=== PATIENT | male | born 1980 | race Caucasian/White ===

== ENCOUNTER 2018-11-17 13:19 | Emergency (ER) | payer SELFPAY ==
[2018-11-17] MEDS ORDERED: ONDANSETRON HCL INJ/PF 4 MG/2 ML SDV IV ONE (14:58)
[2018-11-17] MEDS ORDERED: MORPHINE SULFATE 10 MG/ML INJ IV ONE (14:58)
--- NOTE | 2018-11-17 15:04 | ER Document Report ---
ED GI/ - General Chief Complaint: Groin Pain Stated Complaint: GROIND PAIN Time Seen by Provider: 11/17/18 14:46 Mode of Arrival: Ambulatory Information source: Patient Notes: Patient is a 38-year-old male comes emergency room complaining of left inguinal pain. Patient states that he felt a pop up 2 weeks ago was very small in the low back in and had no problem with it on Saturday this past week patient states that it doubled in size and is not been reducible. He contacted his doctor told him he needed to come to emergency room. Pain has been consistent and constant for the last 2 days. He has been covering his pain with ibuprofen and Tylenol and states that the pain is getting worse and the Tylenol he took last is wearing off. Patient denies any other medical problems he denies any testicular pain or any type of discharge or dysuria. TRAVEL OUTSIDE OF THE [place] IN LAST 30 DAYS: No - HPI Patient complains to provider of: Groin pain Onset: Last week Timing/Duration: Gradual, Worse Quality of pain: Achy, Sharp, Throbbing Severity at maximum: Moderate Severity in ED: Moderate Pain Level: 3 Location: LLQ Sexual history: Active Associated symptoms: Inguinal mass Relieved by: Denies Similar symptoms previously: Yes Recently seen / treated by doctor: No - Related Data Allergies/Adverse Reactions: Penicillins Allergy (Verified 11/17/18 13:20) Past Medical History - General Information source: Patient - Social History Smoking Status: Never Smoker Cigarette use (# per day): No Chew tobacco use (# tins/day): No Smoking Education Provided: No Frequency of alcohol use: None Drug Abuse: None Lives with: Family Family History: Reviewed & Not Pertinent Review of Systems - Review of Systems Constitutional: No symptoms reported EENT: No symptoms reported Cardiovascular: No symptoms reported Respiratory: No symptoms reported Gastrointestinal: See HPI, Abdominal pain, Other - Left inguinal pain Genitourinary: No symptoms reported Male Genitourinary: No symptoms reported Musculoskeletal: No symptoms reported Skin: No symptoms reported Hematologic/Lymphatic: No symptoms reported Neurological/Psychological: No symptoms reported -: Yes All other systems reviewed and negative Physical Exam - Vital signs Vitals: Temp Pulse Resp BP Pulse Ox 97.9 F 81 16 150/75 H 95 11/17/18 13:24 11/17/18 13:24 11/17/18 13:24 11/17/18 13:24 11/17/18 13:24 Interpretation: Hypertensive Notes: PHYSICAL EXAMINATION: GENERAL: Well-appearing, well-nourished and in no acute distress. Uncomfortable appearing HEAD: Atraumatic, normocephalic. NECK: Normal range of motion, supple without lymphadenopathy LUNGS: Breath sounds clear to auscultation bilaterally and equal. No wheezes rales or rhonchi. HEART: Regular rate and rhythm without murmurs ABDOMEN: Soft, nontender, nondistended abdomen. No guarding, no rebound. No masses appreciated. Further examination shows a firm mass in the left inguinal area. Very tender to palpate. Unable to differentiate this time between the lymph node inflamed or a left inguinal hernia. #3 NEUROLOGICAL:Normal speech, normal gait. Normal sensory, motor exams PSYCH: Normal mood, normal affect. SKIN: Warm, Dry, normal turgor, no rashes or lesions noted. Course - Vital Signs Vital signs: Temp Pulse Resp BP Pulse Ox 97.9 F 81 16 150/75 H 95 11/17/18 13:24 11/17/18 13:24 11/17/18 13:24 11/17/18 13:24 11/17/18 13:24 Discharge - Discharge Referrals: LOCALMD,NO [Primary Care Provider] - Follow up as needed
[2018-11-17 15:57] LABS: ABSOLUTE EOSINOPHILS # (AUTO) 0.2 10^3/uL (0.0-0.6); ABSOLUTE LYMPHOCYTES (AUTO) 1.9 10^3/uL (0.5-4.7); ABSOLUTE MONOCYTES (AUTO) 1.2 10^3/uL (0.1-1.4); BASOPHILS % (AUTO) 0.5 % (0-2); EOSINOPHILS % (AUTO) 2.6 % (0-6); HEMATOCRIT 51.3 % (37.9-51.0); HEMOGLOBIN 17.8 g/dL (13.5-17.0); LYMPHOCYTES % (AUTO) 20.3 % (13-45); MEAN CORPUSCULAR HEMOGLOBIN 30.1 pg (27.0-33.4); MEAN CORPUSCULAR HGB CONC 34.7 g/dL (32.0-36.0); MEAN CORPUSCULAR VOLUME 87 fl (80-97); MONOCYTES % (AUTO) 12.9 % (3-13); PLATELET COUNT 166 10^3/uL (150-450); RED BLOOD COUNT 5.91 10^6/uL (4.35-5.55); RED CELL DISTRIBUTION WIDTH 13.1 % (11.5-14.0); SEGMENTED NEUTROPHILS % (AUTO) 63.7 % (42-78); TOTAL CELLS COUNTED % (AUTO) 100 %; WHITE BLOOD COUNT 9.5 10^3/uL (4.0-10.5)
[2018-11-17 15:59] LABS: APPEARANCE,URINE CLEAR; BILIRUBIN,URINE NEGATIVE (NEGATIVE); COLOR,URINE YELLOW; GLUCOSE, URINE NEGATIVE (NEGATIVE); KETONES,URINE NEGATIVE (NEGATIVE); LEUKOCYTE ESTERASE,URINE NEGATIVE (NEGATIVE); NITRITE,URINE NEGATIVE (NEGATIVE); PROTEIN,URINE NEGATIVE (NEGATIVE); URINE SPECIFIC GRAVITY 1.015; UROBILINOGEN,URINE NEGATIVE mg/dL (<2.0)
[2018-11-17 19:15] LABS: ALANINE AMINOTRANSFERASE 72 U/L (21-72); ALBUMIN 4.5 g/dL (3.5-5.0); ALKALINE PHOSPHATASE 54 U/L (38-126); ANION GAP 11 (5-19); ASPARTATE AMINO TRANSFERASE 28 U/L (17-59); BILIRUBIN,DIRECT 0.3 mg/dL (0.0-0.4); BILIRUBIN,TOTAL 0.6 mg/dL (0.2-1.3); BLOOD UREA NITROGEN 25 mg/dL (7-20); CALCIUM 9.1 mg/dL (8.4-10.2); CARBON DIOXIDE 25 mmol/L (22-30); CHLORIDE 104 mmol/L (98-107); GLUCOSE 119 mg/dL (75-110); POTASSIUM 4.3 mmol/L (3.6-5.0); SODIUM 139.7 mmol/L (137-145); TOTAL PROTEIN 7.1 g/dL (6.3-8.2)
[2018-11-17 19:18] VITALS: BP 132/53
--- NOTE | 2018-11-17 20:02 | RADIOLOGY REPORT (SQ) ---
EXAM DESCRIPTION: CT ABD/PELVIS WITH IV ONLY COMPLETED DATE/TIME: 11/17/2018 7:41 pm REASON FOR STUDY: left inguinal hernia? vs lymp COMPARISON: None. TECHNIQUE: CT scan of the abdomen and pelvis performed using helical scanning technique with dynamic intravenous contrast injection. No oral contrast. Images reviewed with lung, soft tissue, and bone windows. Reconstructed coronal and sagittal MPR images reviewed. Delayed images for evaluation of the urinary system also acquired. All images stored on PACS. All CT scanners at this facility use dose modulation, iterative reconstruction, and/or weight based d osing when appropriate to reduce radiation dose to as low as reasonably achievable (ALARA). [facility]: Dose Right [facility]: CareDose [facility]: Dose Right [facility]: Teradose 4D [facility]: [place] CONTRAST TYPE AND DOSE: contrast/concentration: Isovue mg/ml; Total Contrast Delivered: 100.0 ml; T otal Saline Delivered: 72.0 ml RENAL FUNCTION: None required. The patient is less than 50 years old. RADIATION DOSE: CT Rad equipment meets quality standard of care and radiation dose reduction techniq ues were employed. CTDIvol: 17.8 - 20.0 mGy. DLP: 2110 mGy-cm.. LIMITATIONS: None. FINDINGS: LOWER CHEST: No significant findings. No nodules or infiltrates. LIVER: Normal size. No masses. No dilated ducts. SPLEEN: Normal size. No focal lesions. PANCREAS: No masses. No significant calcifications. No adjacent inflammation or peripancreatic fluid collections. Pancreatic duct not dilated. GALLBLADDER: No identified stones by CT criteria. No inflammatory changes to suggest cholecystitis. ADRENAL GLANDS: No significant masses or asymmetry. RIGHT KIDNEY AND URETER: No solid masses. No significant calcifications. No hydronephrosis or hyd roureter. LEFT KIDNEY AND URETER: No solid masses. No significant calcifications. No hydronephrosis or hydr oureter. AORTA AND VESSELS: No aneurysm. No dissection. Renal arteries, SMA, celiac without stenosis. RETROPERITONEUM: No retroperitoneal adenopathy, hemorrhage or masses. BOWEL AND PERITONEAL CAVITY: No masses or inflammatory changes. No free fluid or peritoneal masses. APPENDIX: Normal. PELVIS: No mass. No free fluid. Normal bladder. ABDOMINAL WALL: No masses. No hernias. BONES: No significant or acute findings. OTHER: There is a 4.1 x 2.3 cm in diameter slightly lobulated mass with central relative low density in the left inguinal region with the differential possibilities including a thick wall abscess collec tion versus an enlarged necrotic or infected lymph node. Other etiologies cannot be completely exclu ded however. There are edematous or inflammatory changes in the adjacent subcutaneous fat there are a couple adjacent prominent left inguinal lymph nodes. IMPRESSION: 4.1 x 2.3 cm in diameter slightly lobulated mass with central relative low density in th e left inguinal region as noted above. Differential possibilities would include a thick walled absce ss collection versus an enlarged necrotic or infected lymph node. There are edematous or inflammator y changes in the adjacent subcutaneous fat. Other etiologies including a neoplastic process cannot b e completely excluded. There are adjacent prominent left inguinal lymph nodes. Other findings as no ivis above TECHNICAL DOCUMENTATION: JOB ID: [id number] Quality ID # [id number]: Final reports with documentation of one or more dose reduction techniques (e.g., Au tomated exposure control, adjustment of the mA and/or kV according to patient size, use of iterative reconstruction technique) 2010 [employer]- All Rights Reserved Reading location - IP/workstation name: [email or web address]
[2018-11-17] MEDS ORDERED: KETOROLAC TROMETHAMINE INJ/PF 30 MG/1 ML SDV IV ONE (20:22)
[2018-11-17] MEDS ORDERED: LIDOCAINE 1% INJ-PF (10 MG/ML) 30 ML SDV INJ ONE (20:40)
--- NOTE | 2018-11-17 21:29 | ER Document Report ---
ED GI/ - General Chief Complaint: Groin Pain Stated Complaint: GROIND PAIN Time Seen by Provider: 11/17/18 14:46 Mode of Arrival: Ambulatory Information source: Patient Notes: I had originally seen patient in triage this morning and did his quick evaluation and assessment and put orders in place. So his basic history I do from the onset of my being reassigned him. Patient states that approximately 2 weeks ago he noticed some inguinal discomfort and had a area of a small what he felt was a hernia that was uncomfortable but went away after a couple of days did not think about it. On this past weekend on Saturday patient states that he had a onset of severe left groin pain and was unable to reduce it this time. He states the pain is gotten consistent and constant and that he contacted his primary care who instructed him to come to ER. Patient denies any heavy lifting he does work out but does not remember straining himself. He denies any nausea vomiting or diarrhea he denies any testicular pain or discomfort. Patient has no past medical history and is currently on no medications. TRAVEL OUTSIDE OF THE [place] IN LAST 30 DAYS: No - HPI Patient complains to provider of: Other - Left groin pain Onset: Other - 3 days worse today Timing/Duration: Sudden, Persistent, Worse Quality of pain: Achy, Sharp, Throbbing Severity at maximum: Moderate Severity in ED: Moderate Pain Level: 3 Context: denies: Bad food, Lifting Location: Other - Left groin Adult Front & Back Diagram: 1 - Total area pain and discomfort. The area feels like a lymph node where it is bulging in the middle tapers at both ends very tender to palpate Sexual history: Active, Unprotected intercourse. denies: New partner, Multiple partners, Rectal penetration, STD exposure, Condoms Associated symptoms: Inguinal mass Exacerbated by: Movement, Walking, Other - Palpation Relieved by: Denies Similar symptoms previously: Yes Recently seen / treated by doctor: No - Related Data Allergies/Adverse Reactions: Penicillins Allergy (Verified 11/17/18 13:20) Past Medical History - Social History Smoking Status: Never Smoker Cigarette use (# per day): No Chew tobacco use (# tins/day): No Frequency of alcohol use: None Drug Abuse: None Lives with: Family Family History: Reviewed & Not Pertinent Patient has suicidal ideation: No Patient has homicidal ideation: No Renal/ Medical History: Denies: Hx Peritoneal Dialysis Review of Systems - Review of Systems Constitutional: No symptoms reported EENT: No symptoms reported Cardiovascular: No symptoms reported Respiratory: No symptoms reported Gastrointestinal: No symptoms reported Genitourinary: See HPI, Pain, Other - Groin pain Male Genitourinary: See HPI, Other - Left groin pain Musculoskeletal: No symptoms reported Skin: No symptoms reported Hematologic/Lymphatic: No symptoms reported Neurological/Psychological: No symptoms reported -: Yes All other systems reviewed and negative Physical Exam - Vital signs Vitals: Temp Pulse Resp BP Pulse Ox 97.9 F 81 16 150/75 H 95 11/17/18 13:24 11/17/18 13:24 11/17/18 13:24 11/17/18 13:24 11/17/18 13:24 Interpretation: Hypertensive - Notes Notes: PHYSICAL EXAMINATION: GENERAL: Patient is well-nourished well-developed 38-year-old male who is in no apparent distress but is in obvious discomfort the pain is obviously anxious over his presentation and findings of his left inguinal mass. HEAD: Atraumatic, normocephalic. EYES: Pupils equal round and reactive to light, extraocular movements intact, sclera anicteric, conjunctiva are normal. ENT: Nares patent, oropharynx clear without exudates. Moist mucous membranes. NECK: Normal range of motion, supple without lymphadenopathy LUNGS: Breath sounds clear to auscultation bilaterally and equal. No wheezes rales or rhonchi. HEART: Regular rate and rhythm without murmurs ABDOMEN: Examination patient's abdomen shows it to be normal in appearance normal bowel sounds all 4 quads. No tenderness in any of the quads. Further examination in the left groin where patient states is his primary problem shows her to be a 4-5 cm mid elongated mass that is firm to palpation and very tender to palpate. This appears to me as a lymph node with it bulging in the middle and tapering at each end but again very tender to palpate. It does not attempt to reduce. And again very tender and painful to touch. Further examination area does show the patient has a diffuse rash he because of the heat rash this time a year he gets that yearly like this. Denies any other problems. Musculoskeletal: Normal range of motion, no pitting or edema. No cyanosis. NEUROLOGICAL: Normal speech, normal gait. Normal sensory, motor exams PSYCH: Normal mood, normal affect. SKIN: Warm, Dry, normal turgor, no rashes or lesions noted. Course - Re-evaluation Re-evalutation: 11/18/18 03:55 Patient's lab came back relatively normal his CT of the area showed that he has questionable area for having a 4.1 x 2.3 cm diameter slightly lobulated mass with central relatively low density in the left inguinal region as noted above. Differential possibilities would include a thick walled abscess, collection versus an enlarged necrotic or infected lymph node. Also there are other options that would include neoplastic processes and inflammatory changes etc. Given his findings I discussed the case with Dr. Stevenson who also suggested that I contact Dr. Restrepo I did talk to him and originally he had indicated he felt comfortable enough to go ahead and have me go and ID the area when I kind of was resistant to the idea Dr. Restrepo came down to inspect the patient personally. On inspection patient had not informed me of his family history of cancers his father of colon cancer and his mother of esophageal cancer and patient is afraid of doctors because he is afraid he is going to young. So after I had and indicated to him that I was contacting a surgeon patient became somewhat anxious and started to shut out all that was being said. Dr. Restrepo her role likely convince patient to do a rectal exam which was benign and rather than do an I&D here he felt it more beneficial to have patient come back when we can have pathology run on the area as well and patient and agreed to this wholeheartedly. Dr. Restrepo took the patient information and was going to have his office contact them tomorrow morning for a date that would fit in their schedule and a date that would fit his. At the same time Dr. Restrepo did a more thorough exam he also found patient to have a Nasim wrap around his left calf when he asked about what was going on patient told him that he had injured his leg at work when he removed the Nasim wrap there was appeared to be a pen done cold hemangioma of that was bleeding and appeared may be somewhat infected. This may have been the source of infection for that inguinal lymph node. So again this will be something that Dr. Restrepo will cover with patient on his office visit and his biopsy. We are sending patient home on doxycycline for 2 weeks and a little pain medication and he promises to return. I took him on the side and informed him that not to know does not mean you do not have it but to prolong it is asking for the worst. He took this the way it was intended that he cannot put it off because he does not want to have it he has to hit head on and take 1 day at a time with the outcome and the findings. - Vital Signs Vital signs: Temp Pulse Resp BP Pulse Ox 98.2 F 84 20 132/53 H 93 11/17/18 19:17 11/17/18 19:17 11/17/18 19:17 18 19:17 11/17/18 19:17 - Laboratory Result Diagrams: 11/17/18 15:44 11/17/18 18:33 Laboratory results interpreted by me: 11/17/18 11/17/18 15:44 18:33 RBC 5.91 H Hgb 17.8 H Hct 51.3 H BUN 25 H Glucose 119 H Discharge - Discharge Clinical Impression: Lymphadenopathy Condition: Stable Disposition: HOME, SELF-CARE Instructions: Lymphadenopathy ([facility]) Additional Instructions: As per Dr. Restrepo I am place you on antibiotics twice a day for 2 weeks. Pain medicine as prescribed. As Dr. Restrepo as mentioned to you he will contact you to set up a time to come in to have the biopsy done. Please keep that appointment. Should you have any concerns or problems return to ER for a recheck or reevaluation's. Prescriptions: Doxycycline Hyclate 100 mg PO BID 14 Days #28 capsule Hydrocodone/Acetaminophen [[place] 7.5-325 mg Tablet] 1 tab PO Q4 PRN #15 tablet PRN Reason: Ibuprofen [Motrin 800 mg Tablet] 800 mg PO Q8H PRN #30 tab PRN Reason: Forms: Return to Work Referrals: DANIEL,LINDA [NO LOCAL MD] - Follow up as needed ALLIE RESTREPO MD [ACTIVE STAFF] - Follow up as needed
--- NOTE | 2018-11-17 21:34 | PDOC CONSULTATION ---
Consultation Consult Date: 11/17/18 Consult reason:: Left inguinal lymphadenopathy. History of Present Illness History of Present Illness: DORENE ALEJANDRO is a 38 year old male seen in consultation at the request of the emergency room physician. The patient reports a 2-3-week history of progressive swelling in the left groin. It is painful with movement and palpation. He rates his pain as a 5 out of 10. The patient denies fevers, chills, night sweats, sick contacts, recent tick exposure, masses or lesions on the testicle, penile drainage, rectal bleeding, delays, fatigue, or other significant finding. 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 It has been present for more than 10 years. Nothing makes his groin swelling worse or better. Social History Lives with: Family Smoking Status: Never Smoker Family History Family History: Other - Colon cancer in father at age 49 Parental Family History Reviewed: Yes Children Family History Reviewed: Yes Sibling(s) Family History Reviewed.: Yes Medication/Allergy Home Medications: Doxycycline Hyclate 100 mg PO BID 14 Days #28 capsule 11/17/18 Hydrocodone/Acetaminophen [[place] 7.5-325 mg Tablet] 1 tab PO Q4 PRN #15 tablet 11/17/18 Ibuprofen [Motrin 800 mg Tablet] 800 mg PO Q8H PRN #30 tab 11/17/18 Allergies/Adverse Reactions: Penicillins Allergy (Verified 11/17/18 13:20) Review of Systems Constitutional: ABSENT: anorexia, chills, fatigue, fever(s), headache(s), night sweats, weakness Eyes: ABSENT: visual disturbances Ears: ABSENT: hearing changes Nose, Mouth, and Throat: ABSENT: sore throat Cardiovascular: ABSENT: chest pain, palpitations Respiratory: ABSENT: cough, dyspnea Gastrointestinal: ABSENT: abdominal pain, bloating, hematemesis, hematochezia, melena, nausea, vomiting Genitourinary: ABSENT: dysuria Musculoskeletal: ABSENT: back pain Integumentary: PRESENT: pruritus, rash - Bilateral thighs, other - 9-year-old hemangioma to the left lateral thigh Neurological: ABSENT: confusion, convulsions, dizziness, numbness Psychiatric: PRESENT: anxiety. ABSENT: depression Endocrine: ABSENT: cold intolerance, heat intolerance Hematologic/Lymphatic: ABSENT: easy bleeding, easy bruising Physical Exam Vital Signs: Temp Pulse Resp BP Pulse Ox 98.2 F 84 20 132/53 H 93 11/17/18 19:17 11/17/18 19:17 11/17/18 19:17 11/17/18 19:17 11/17/18 19:17 Intake & Output 11/16/18 11/17/18 11/18/18 06:59 06:59 06:59 Weight 117 kg General appearance: PRESENT: no acute distress Head exam: PRESENT: atraumatic, normocephalic Eye exam: PRESENT: EOMI, PERRLA. ABSENT: scleral icterus Mouth exam: PRESENT: neck supple Teeth exam: ABSENT: poor dentation Neck exam: ABSENT: meningismus, tenderness, thyromegaly, tracheal deviation Respiratory exam: PRESENT: clear to auscultation guzman, unlabored. ABSENT: chest wall tenderness, rhonchi, wheezes Cardiovascular exam: PRESENT: RRR Pulses: PRESENT: normal radial pulses Vascular exam: PRESENT: normal capillary refill. ABSENT: pallor GI/Abdominal exam: PRESENT: soft. ABSENT: distended, rebound, rigid, tenderness Rectal exam: PRESENT: normal rectal tone. ABSENT: bloody stool, mass, prostate enlargement, prostate tenderness, tenderness Gentrourinary exam: PRESENT: other - Stickles normal to palpation. No masses or tenderness. No penile drainage or erythema. No open sores or wounds. Extremities exam: ABSENT: clubbing, tenderness Neurological exam: PRESENT: alert, awake, oriented to person, oriented to place , oriented to time, oriented to situation, CN II-XII grossly intact Psychiatric exam: PRESENT: anxious. ABSENT: agitated, depressed Focused psych exam: ABSENT: delusional Skin exam: PRESENT: other - 1.5 cm pedunculated mass lesion to the skin of the left lateral thigh. Results Laboratory Results: 11/17/18 15:44 11/17/18 18:33 11/17/18 11/17/18 11/17/18 15:44 15:44 15:44 WBC 9.5 RBC 5.91 H Hgb 17.8 H Hct 51.3 H MCV 87 MCH 30.1 MCHC 34.7 RDW 13.1 Plt Count 166 Seg Neutrophils % 63.7 Lymphocytes % 20.3 Monocytes % 12.9 Eosinophils % 2.6 Basophils % 0.5 Absolute Neutrophils 6.0 Absolute Lymphocytes 1.9 Absolute Monocytes 1.2 Absolute Eosinophils 0.2 Absolute Basophils 0.0 Sodium Cancelled Potassium Cancelled Chloride Cancelled Carbon Dioxide Cancelled Anion Gap Cancelled BUN Cancelled Creatinine Cancelled Est GFR ( Amer) Cancelled Est GFR (Non-Af Amer) Cancelled Glucose Cancelled Calcium Cancelled Total Bilirubin Cancelled AST Cancelled ALT Cancelled Alkaline Phosphatase Cancelled Total Protein Cancelled Albumin Cancelled Urine Color YELLOW Urine Appearance CLEAR Urine pH 6.0 Ur Specific [place] 1.015 Urine Protein NEGATIVE Urine Glucose (UA) NEGATIVE Urine Ketones NEGATIVE Urine Blood NEGATIVE Urine Nitrite NEGATIVE Ur Leukocyte Esterase NEGATIVE Urine WBC (Auto) 1 Urine RBC (Auto) 0 11/17/18 18:33 WBC RBC Hgb Hct MCV MCH MCHC RDW Plt Count Seg Neutrophils % Lymphocytes % Monocytes % Eosinophils % Basophils % Absolute Neutrophils Absolute Lymphocytes Absolute Monocytes Absolute Eosinophils Absolute Basophils Sodium 139.7 Potassium 4.3 Chloride 104 Carbon Dioxide 25 Anion Gap 11 BUN 25 H Creatinine 0.79 Est GFR ( Amer) > 60 Est GFR (Non-Af Amer) > 60 Glucose 119 H Calcium 9.1 Total Bilirubin 0.6 AST 28 ALT 72 Alkaline Phosphatase 54 Total Protein 7.1 Albumin 4.5 Urine Color Urine Appearance Urine pH Ur Specific [place] Urine Protein Urine Glucose (UA) Urine Ketones Urine Blood Urine Nitrite Ur Leukocyte Esterase Urine WBC (Auto) Urine RBC (Auto) Impressions: Abdomen/Pelvis CT 11/17/18 14:56 IMPRESSION: 4.1 x 2.3 cm in diameter slightly lobulated mass with central relative low density in the left inguinal region as noted above. Differential possibilities would include a thick walled abscess collection versus an enlarged necrotic or infected lymph node. There are edematous or inflammatory changes in the adjacent subcutaneous fat. Other etiologies including a neoplastic process cannot be completely excluded. There are adjacent prominent left inguinal lymph nodes. Other findings as noted above Assessment & Plan - Diagnosis (1) Inguinal lymphadenopathy Is this a current diagnosis for this admission?: Yes - Plan Summary Plan Summary: This is a 38-year-old male with significant, symptomatic inguinal lymphadenopathy. The patient has a CT scan which I have reviewed (films and report). There is no significant intra-abdominal lymphadenopathy or deep inguinal lymphadenopathy, however there are several large lymph nodes in the left groin. The patient has a normal testicular and penile exam. The patient denies significant sick contacts or tick exposure. The patient's CBC with differential is normal. I will start the patient's workup by ordering rickettsia, CMV, and EBV titers. I will prescribe doxycycline 100 mg p.o. twice daily. I will schedule patient for excisional biopsy of a lymph node to rule out malignancy. The patient has a strong family history of early colon cancer. His father was diagnosed with colon cancer at age 49. Currently the patient is 38. I recommended he undergo colonoscopy for screening purposes due to his high risk. The patient wishes to think about this.
[2018-11-19 21:36] LABS: Q FEVER PHASE I AB Negative (Neg:<1:16); ROCKY MTN SPOTTED FEV IGG EIA Negative (Negative)
[2018-11-20 07:16] LABS: EPSTEIN BARR EARLY AG IGG AB <9.0 U/mL (0.0-8.9); EPSTEIN BARR VCA IGM AB <36.0 U/mL (0.0-35.9); Q FEVER PHASE II AB Negative (Neg:<1:16)
== END 2018-11-17 21:52 | disposition home or self-care (01) ==
LOC: ER 13:19
DX: R59.1 Generalized enlarged lymph nodes (principal); R10.30 Lower abdominal pain, unspecified; M54.5 Low back pain; Z88.0 Allergy status to penicillin
CPT/HCPCS: 99284; 96374; 87496; 36415; 86663; 86256 ×2; 86664; 86665; 85025; 80053; 81001; 86757; 74177; J3490; J1885

== ENCOUNTER 2018-12-09 09:54 | Day surgery (SDC) | payer SELFPAY ==
[~2018-12-09 09:54] MED LIST: ACETAMINOPHEN 1,000 MG/100 ML RTUPB IV ONE; BUPIVACAINE HCL 0.25 % INJ/PF (2.5 MG/1 ML) 30 ML VIAL ONE; DEXAMETHASONE SOD PHOSPHATE INJ 4 MG/1 ML VIAL ONE; FENTANYL CITRATE INJ/PF 100 MCG/2 ML AMPUL ONE; IBUPROFEN 800 MG in NORMAL SALINE 250 ML IV PRN; LIDOCAINE 1% INJ-PF (10 MG/ML) 30 ML SDV ONE; LIDOCAINE 2% INJ-PF (20 MG/ML) 10 ML AMPUL ONE; MIDAZOLAM 2 MG/2 ML INJ ONE; ONDANSETRON HCL INJ/PF 4 MG/2 ML SDV ONE; PROPOFOL INJ 200 MG/20 ML VIAL IV ONE; VANCOMYCIN HCL 1,000 MG in DEXTROSE 5%-WATER 250 ML IV PRN
[2018-12-09] MEDS ORDERED: BUPIVACAINE HCL 0.25 % INJ/PF (2.5 MG/1 ML) 30 ML VIAL ONE (10:13)
[2018-12-09] MEDS ORDERED: MEPERIDINE HCL/PF INJ 25 MG/1 ML DISP.SYRIN IV PRN (12:43)
[2018-12-09] MEDS ORDERED: MORPHINE SULFATE 10 MG/ML INJ IV PRN (12:43)
[2018-12-09] MEDS ORDERED: ONDANSETRON HCL INJ/PF 4 MG/2 ML SDV IV PRN (12:43)
[2018-12-09] MEDS ORDERED: FENTANYL CITRATE INJ/PF 100 MCG/2 ML AMPUL IV PRN ×3 (12:43)
[2018-12-09] MEDS ORDERED: PROMETHAZINE HCL INJ 25 MG/1 ML VIAL IV PRN ×2 (12:43)
[2018-12-09] MEDS ORDERED: DIPHENHYDRAMINE HCL 50 MG/ML VIAL IV PRN (12:43)
[2018-12-09] MEDS ORDERED: SUCCINYLCHOLINE CHLORIDE INJ 200 MG/10 ML VIAL ONE (13:49)
--- NOTE | 2018-12-09 14:48 | Operative Report ---
Nonrecallable Operative Report DATE OF SURGERY: 12/09/18 PREOPERATIVE DIAGNOSIS: 1. Left inguinal lymphadenopathy. 2. Left lower extremity skin lesion, possible hemangioma. POSTOPERATIVE DIAGNOSIS: Same as above. OPERATION: 1. Excisional biopsy of multiple left inguinal lymph nodes. 2. Excision of 2.5 cm left lower extremity skin lesion (excised area measures 4 x 9 cm). 3. Intermediate closure of 9 cm lower extremity incision. SURGEON: ALLIE ENAMORADO ANESTHESIA: GA TISSUE REMOVED OR ALTERED: 1. Excised left inguinal lymph nodes. 2. Left lower extremity skin lesion, 2.5 cm in maximal diameter COMPLICATIONS: None apparent ESTIMATED BLOOD LOSS: 25 cc PROCEDURE: Drains/implants: None. Procedure in detail: After informed consent was obtained, the patient was brought to the operating room and laid in the supine position. The area of the left groin was prepped and draped in a normal sterile fashion. A 3.5 cm incision was created in the left groin. Dissection was carried through the subcutaneous tissue. Using sharp dissection and electrocautery, several left inguinal lymph nodes were removed and passed off the field. Hemostasis was achieved. The subcutaneous tissue was closed using 2-0 Vicryl suture in simple running fashion. The overlying skin was closed using 4-0 Vicryl Rapide suture in subcuticular fashion. A dressing was placed, and attention was turned to the left lower extremity skin lesion. There was a pedunculated skin lesion present on the left lateral posterior thigh. The area was prepped and draped in a normal sterile fashion. The lesion measured 2.5 cm in maximal diameter. Approximately 1 cm margin was marked circumferentially from the base of the pedunculated lesion. An ellipse of tissue approximately 9 x 4 cm was then marked. A 15 blade scalpel was used to excise the ellipse, down to the fascia of the leg. Hemostasis was achieved using electrocautery. Skin flaps were raised anteriorly and posteriorly. The skin flaps were then closed. The subcutaneous tissue was closed using 2-0 Vicryl suture in simple interrupted fashion. The overlying skin was closed using 4-0 Vicryl Rapide suture in subcuticular fashion. A dressing was placed, and this portion of the procedure was concluded. It was brought to my attention that more lymph tissue was needed, therefore harvesting of more lymph node tissue would be required. The left groin was prepped and draped again. The previous incision was opened with a 15 blade scalpel. The previous internal sutures were divided. Several other lymph nodes were identified in the area. These were excised and sent to pathology. Hemostasis was again achieved. The subcutaneous tissues were closed using 2-0 Vicryl suture. The overlying skin was closed using 4-0 Vicryl Rapide suture in subcuticular fashion. Dressings were placed, and the procedure was concluded. All sponge, instrument, and needle counts were correct x2. Condition: Stable.
--- NOTE | 2018-12-09 14:50 | Discharge Summary ---
Discharge Summary (SDC) - Discharge Final Diagnosis: #1 inguinal lymphadenopathy. #2 left lower extremity skin lesion Date of Surgery: 12/09/18 Discharge Date: 12/09/18 Condition: Stable Treatment or Instructions: Discharge home. Diet as tolerated. Activity: Nonstrenuous. Follow-up with me in 7-10 days. [place] 5/325 mg p.o. every 6 hours as needed for pain. Okay to shower in 48 hours. No tub baths times 2 weeks. Discharge Diet: As Tolerated Respiratory Treatments at Home: Deep Breathing/Coughing, Incentive Spirometer Discharge Activity: Balance Activity w/Rest Home Care Assistance: None Needed Report the Following to Your Physician Immediately: Shortness of Breath, Nausea, Vomiting, Increase in Pain, Fever over 101 Degrees, Unusual Bleeding, Redness
[2018-12-09] MEDS ORDERED: HYDROCODONE/ACETAMINOPHEN 5-325 MG TABLET PO PRN (14:53)
[2018-12-09] MEDS ORDERED: HYDROCODONE/ACETAMINOPHEN 5-325 MG TABLET ONE (15:07)
[2018-12-09 16:11] VITALS: BP 137/65
== END 2018-12-09 16:12 | disposition home or self-care (01) ==
LOC: OROUT 09:54
PROVIDERS: ATTEND Surgery
DX: C43.72 Malignant melanoma of left lower limb, including hip (principal); C77.4 Secondary and unspecified malignant neoplasm of inguinal and lower limb lymph nodes; Z88.0 Allergy status to penicillin; Z01.818 Encounter for other preprocedural examination; Z88.1 Allergy status to other antibiotic agents
CPT/HCPCS: 38500; 11606; 12032; 88185 ×15; 88184; 88233; 88262; 88342 ×2; 88341 ×2; 88305 ×2; 88307 ×2; J2250; J1100; J3010; J0330; J2405; J7060; J7050; J2704; J3370; J3490; J0131; J1741; 400

== ENCOUNTER → 2019-01-04 | Outpatient (CLI) | payer SELFPAY ==
--- NOTE | 2019-01-05 10:05 | RADIOLOGY REPORT (SQ) ---
EXAM DESCRIPTION: PET CT WHOLE BODY COMPLETED DATE/TIME: 01/04/2019 8:35 pm REASON FOR STUDY: MALIGNANT MELANOMA LEFT LOWER LEG C43.72 MALIGNANT MELANOMA OF LEFT LOWER LIMB, I NCLUDING HIP COMPARISON: None. RADIONUCLIDE AND DOSE: 9.2 mCi F18 FDG The route of agent administration: Intravenous FASTING BLOOD SUGAR: 87 mg/dl CONTRAST TYPE AND DOSE: No CT contrast given. TECHNIQUE: Blood glucose level was verified. Above dose of FDG was injected intravenously. 2-D seg mented attenuation correction images were obtained through the entire body. Noncontrast CT images we re obtained for attenuation correction and fusion with emission images. CT images were performed wit hout oral or intravenous contrast and are not sensitive for parenchymal lesions. A series of overlap ping emission PET images were obtained. Images reviewed and manipulated at independent work station by the radiologist. Images stored on PACS. LIMITATIONS: None. FINDINGS: HEAD AND NECK: No areas of abnormal metabolic activity in the soft tissues of the head and neck. CHEST: No areas of abnormal metabolic activity in the chest. ABDOMEN AND PELVIS: 2.4 x 2.1 cm left inguinal node measuring 5.8 SUV. LOWER EXTREMITIES: No areas of abnormal metabolic activity in the soft tissues of the lower extremiti es. BONES: No abnormal metabolic activity in the visualized skeleton. ADDITIONAL CT FINDINGS: 1.9 x 3.3 cm subcutaneous nodule posterior left upper thigh not hypermetaboli c. Post biopsy changes in the left groin. OTHER: Blood pool 1.5 SUV. Liver background 2.3 SUV. IMPRESSION: Hypermetabolic left inguinal node. No evidence of metastatic disease. TECHNICAL DOCUMENTATION: JOB ID: [id number] [employer]- All Rights Reserved Reading location - IP/workstation name: [email or web address]
== END ==
LOC: RAD 15:21
PROVIDERS: ATTEND Internal Medicine
DX: C43.72 Malignant melanoma of left lower limb, including hip (principal)
CPT/HCPCS: 78816; A9552

== ENCOUNTER 2019-01-22 05:30 | Inpatient (IN) | payer SELFPAY ==
[~2019-01-22 05:30] MED LIST changes: -ACETAMINOPHEN 1,000 MG/100 ML RTUPB IV ONE; -BUPIVACAINE HCL 0.25 % INJ/PF (2.5 MG/1 ML) 30 ML VIAL ONE; +CEFAZOLIN 2 GM/D5W RTU 2 GM/50 ML RTUPB IV ONE; +CEFAZOLIN 2 GM/D5W RTU 2 GM/50 ML RTUPB IV PRN; -DEXAMETHASONE SOD PHOSPHATE INJ 4 MG/1 ML VIAL ONE; -FENTANYL CITRATE INJ/PF 100 MCG/2 ML AMPUL ONE; +LACTATED RINGERS 1000 ML IV PRN; +LIDOCAINE 0.5% INJ-PF (5 MG/ML) 50 ML SDV SUBCUT PRN; -LIDOCAINE 1% INJ-PF (10 MG/ML) 30 ML SDV ONE; -LIDOCAINE 2% INJ-PF (20 MG/ML) 10 ML AMPUL ONE; -MIDAZOLAM 2 MG/2 ML INJ ONE; -ONDANSETRON HCL INJ/PF 4 MG/2 ML SDV ONE; -PROPOFOL INJ 200 MG/20 ML VIAL IV ONE; -VANCOMYCIN HCL 1,000 MG in DEXTROSE 5%-WATER 250 ML IV PRN
[2019-01-22] MEDS ORDERED: PROPOFOL INJ 200 MG/20 ML VIAL IV ONE (06:52)
[2019-01-22] MEDS ORDERED: EPHEDRINE SULFATE INJ 50 MG/1 ML AMPULE ONE (06:53)
[2019-01-22] MEDS ORDERED: ONDANSETRON HCL INJ/PF 4 MG/2 ML SDV ONE (06:53)
[2019-01-22] MEDS ORDERED: FENTANYL CITRATE INJ/PF 100 MCG/2 ML AMPUL ONE ×2 (06:53→07:51)
[2019-01-22] MEDS ORDERED: ACETAMINOPHEN 1,000 MG/100 ML RTUPB IV ONE (06:53)
[2019-01-22] MEDS ORDERED: MIDAZOLAM 2 MG/2 ML INJ ONE (06:53)
[2019-01-22] MEDS ORDERED: DEXAMETHASONE SOD PHOSPHATE INJ 4 MG/1 ML VIAL ONE (06:53)
[2019-01-22] MEDS ORDERED: PROMETHAZINE HCL INJ 25 MG/1 ML VIAL ONE (06:53)
[2019-01-22] MEDS ORDERED: DIPHENHYDRAMINE HCL 50 MG/ML VIAL IV PRN (07:45)
[2019-01-22] MEDS ORDERED: PROMETHAZINE HCL INJ 25 MG/1 ML VIAL IV PRN ×2 (07:45)
[2019-01-22] MEDS ORDERED: FENTANYL CITRATE INJ/PF 100 MCG/2 ML AMPUL IV PRN ×3 (07:45)
[2019-01-22] MEDS ORDERED: MEPERIDINE HCL/PF INJ 25 MG/1 ML DISP.SYRIN IV PRN (07:45)
[2019-01-22] MEDS ORDERED: MORPHINE SULFATE 10 MG/ML INJ IV PRN (07:45)
[2019-01-22] MEDS ORDERED: HYDROMORPHONE HCL INJ/PF 2 MG/ML AMPULE ONE (07:51)
[2019-01-22] MEDS ORDERED: KETOROLAC TROMETHAMINE 60 MG/2 ML SDV ONE (10:05)
[2019-01-22] MEDS ORDERED: ROCURONIUM BROMIDE INJ 50 MG/5 ML VIAL IV ONE (10:05)
[2019-01-22] MEDS ORDERED: SUCCINYLCHOLINE CHLORIDE INJ 200 MG/10 ML VIAL ONE (10:05)
[2019-01-22] MEDS: BUPIVACAINE HCL 0.5%-EPI 1:200000 INJ/PF 30 ML VIAL ONE ×2 (11:18→15:35)
[2019-01-22] MEDS ORDERED: MORPHINE SULFATE 60 MG/60 ML RTUINJ IV PRN (12:24)
[2019-01-22] MEDS: FENTANYL CITRATE INJ/PF 100 MCG/2 ML AMPUL ONE ×4 (12:33→13:15)
--- NOTE | 2019-01-22 12:57 | OPERATIVE REPORT E ---
Operative Report NAME: DORENE ALEJANDRO : 1980 AGE: 38Y DATE OF SURGERY: 01/22/2019 ROOM: PREOPERATIVE DIAGNOSIS: Melanoma. POSTOPERATIVE DIAGNOSIS: Melanoma. OPERATIVE PROCEDURE: Left superficial and deep iliofemoral groin dissection. SURGEON: RANULFO MATT M.D. GENERATING PLANT SUPERINTENDENT: Eugenio Restrepo M.D. SECOND SWIMMING POOL PLASTERER HELPER: GIOVANI Montejo Dr. was present for the entire and served as first coat sander with wound retraction and part of the dissection as well as wound closure. Dayami Howe was present for the entire case and was present for wound retraction and wound closure. INDICATIONS FOR PROCEDURE: This is a 38-year-old male who presented with left groin swelling, which was consistent with a lymph node, also a left lateral thigh nodular lesion, which was excised, proved to be melanoma. The groin node also proved to be melanoma. He was therefore scheduled for the procedure after adequate healing from those previous 2 procedures. In addition to that, Dr. Restrepo performed a port-a-cath insertion and will dictate that as a separate op note and he also will perform a re-excision of the melanoma in the lateral thigh, which will also be dictated as a separate operative note. DESCRIPTION OF PROCEDURE: The patient was brought to the operating room in awake, alert, and stable condition, placed on the operative table in supine position, induced under general anesthesia and intubated. The left groin and leg and lower abdomen were prepped and draped in the usual sterile manner for the procedure. A curvilinear incision was made from the left groin crease and ellipsed around the previous site to encompass that biopsy site and our dissection. This incision extended from the inguinal crease to the lower mid thigh. Dissection was carried down through subcutaneous tissue with Bovie cautery. We then raised lateral and medial skin flaps to preserve the Camper's fascia underneath the skin flap to allow good wound healing. We then continued our dissection down, and after raising the flaps, we turned attention to the medial border of the inguinal canal, which was the adductor longus muscle and identified that fascia and incised the edge between the fascia and the groin nodes with Bovie cautery using that and the harmonic scalpel. We began our incision inferiorly, identifying the femoral triangle and then turned it laterally, identifying the sartorius muscle, continued our dissection along the sartorius muscle upward, mobilizing that muscle laterally away from the groin nodes. We excised the superficial groin nodes from the tip of the femoral triangle where the adductor longus and sartorius muscle came together inferiorly. We continued that dissection proximally, identifying the saphenous vein and dividing that in the distal thigh, doubly ligating it with 0 Vicryl, and then keeping up with our specimen, we continued our dissection proximally, dividing all of the small branches of the lymphatics and clipping them with either hemoclips or using the harmonic scalpel. We mobilized all the soft tissue and fatty tissue away from the muscles proximally to where we identified the bifurcation of the saphenous vein and the femoral vein at the fossa ovalis and doubly ligated the takeoff of the saphenous vein with 2-0 Vicryl and then divided it at the insertion in the femoral vein. We continued our blunt and sharp dissection all the way to the femoral sheath where the Hamer's node was identified and taken with the specimen and that superficial groin node tissue was sent off for specimen. We then turned attention to the femoral sheath, dissected the femoral artery away from the overlying tissue and mobilized it. We also identified the femoral vein and then dissected the fibrofatty tissue away the femoral vein and femoral artery from proximal to distal, removing that fibrofatty tissue around those structures in the deep compartment all the way to the tip of the femoral triangle, which again was where the sartorius muscle and the adductor muscle came together. That fibrofatty tissue was sent down as the deep femoral lymph nodes. At this point, after completion of the lymphadenectomy, we identified the insertion of the sartorius muscle on the iliac crest, divided it, brought it medially to overlie the femoral artery and vein, affixed it to the inguinal ligament with interrupted figure of eight placed 0 Vicryl sutures. We then placed 2 Davol drains, one laterally and one medially underneath the skin flap and brought it out through the stab wound and lateral skin on the thigh. We sprayed the area with Tisseel tissue sealant after irrigation, hemostasis was intact, and we closed the Camper's fascia with interrupted placed 2-0 Vicryl and skin was closed with standard skin clips. We then turned attention to the iliac node portion of the procedure. A curvilinear incision was made about 5 fingerbreadths above the inguinal ligament on the lower abdomen. Dissection was carried down through subcutaneous tissue with Bovie cautery. The external oblique fascia was identified and a long incision then ensued in that muscle and it was retracted cephalad and the patient was then placed in a little bit of right tilt and we divided the transversalis muscle up to identify the peritoneum and that was rotated medially. We immediately identified the psoas muscle, the general femoral nerve on it, and with continued dissection with blunt technique, we identified the ureter and iliac artery. We identified the internal and external iliac artery and then medially and posteriorly we identified the vein. We then dissected the iliac vein proximally, being careful not to injure the ureter and mobilized the ureter medially and dissected the vein up to the takeoff of the internal and external iliac vein. All the fibro-prepped fatty tissue around the vein and artery were taken with blunt and sharp dissection, ligating the small branching lymphatics with Hemoclips and then removing that fibrofatty tissue from the branching of the internal and external iliac vein all the way down to the inguinal ligament. Once all that fibrofatty tissue was removed, hemostasis was obtained and we closed the transversalis muscle with interrupted placed 0 Vicryl. We reclosed the external oblique with a running 0 Maxon suture and the Angela's fascia was reapproximated with interrupted 2-0 Vicryl suture and skin was reapproximated with standard skin clips, which completed the procedure. Estimated blood loss was approximately 200 mL. Sponge and needle counts were correct x2. The patient was awakened in the operating room, extubated, and transferred to recovery in stable condition. Dr. Restrepo will dictate his portion of the procedure, the re-excision of the melanoma on the lateral thigh and the port-a-cath placement as a separate note. DICTATING PHYSICIAN: RANULFO MATT M.D. [id number] PHY#: [id number] ID: [id number] JOB#: [id number] ACCT: [id number] cc:RANULFO MATT M.D. >
[2019-01-22] MEDS: KETOROLAC TROMETHAMINE INJ/PF 30 MG/1 ML SDV IV SCH ×2 (14:11→23:04)
[2019-01-22] MEDS: DEXTROSE 5%-LACTATED RINGERS 1,000 ML IV PRN (14:29)
--- NOTE | 2019-01-22 16:54 | RADIOLOGY REPORT (SQ) ---
EXAM DESCRIPTION: FLUORO/CV PLACEMENT COMPLETED DATE/TIME: 01/22/2019 8:53 am REASON FOR STUDY: PORTACATH PLCMT LEFT SIDE ASST WITH FLUORO IN OR C43.9 MALIGNANT MELANOMA OF SKIN , UNSPECIFIED COMPARISON: None. FLUOROSCOPY TIME: 1.1 minutes 2 digital radiographic images saved to PACS. TECHNIQUE: Intra-operative images acquired during surgical procedure to evaluate progress. NUMBER OF IMAGES: 2 digital fluoro images LIMITATIONS: None. FINDINGS: Intra procedural imaging and fluoro during placement of central venous catheter in the OR. Please see the operative report for further details IMPRESSION: IMAGE(S) OBTAINED DURING PROCEDURE. COMMENT: Quality ID [id number]: Final reports for procedures using fluoroscopy that document radiation exp osure indices, or exposure time and number of fluorographic images (if radiation exposure indices are not available) Please consult full operative report of the attending physician for description of the procedure. TECHNICAL DOCUMENTATION: JOB ID: [id number] [employer]- All Rights Reserved Reading location - IP/workstation name: [email or web address]
[2019-01-22] MEDS: DOCUSATE SODIUM 100 MG CAPSULE PO SCH (18:02)
[2019-01-22] MEDS: FAMOTIDINE 20 MG TABLET PO SCH (23:05)
[2019-01-23] MEDS: DEXTROSE 5%-LACTATED RINGERS 1,000 ML IV PRN (03:31)
[2019-01-23] MEDS: KETOROLAC TROMETHAMINE INJ/PF 30 MG/1 ML SDV IV SCH ×3 (05:41→21:28)
[2019-01-23 07:33] LABS: ABSOLUTE EOSINOPHILS # (AUTO) 0.1 10^3/uL (0.0-0.6); ABSOLUTE LYMPHOCYTES (AUTO) 1.6 10^3/uL (0.5-4.7); ABSOLUTE MONOCYTES (AUTO) 0.9 10^3/uL (0.1-1.4); ABSOLUTE NEUT (AUTO) 4.6 10^3/uL (1.7-8.2); BASOPHILS % (AUTO) 0.2 % (0-2); EOSINOPHILS % (AUTO) 0.8 % (0-6); HEMATOCRIT 41.8 % (37.9-51.0); HEMOGLOBIN 14.4 g/dL (13.5-17.0); LYMPHOCYTES % (AUTO) 21.8 % (13-45); MEAN CORPUSCULAR HGB CONC 34.4 g/dL (32.0-36.0); MEAN CORPUSCULAR VOLUME 87 fl (80-97); MONOCYTES % (AUTO) 12.8 % (3-13); PLATELET COUNT 159 10^3/uL (150-450); RED BLOOD COUNT 4.79 10^6/uL (4.35-5.55); RED CELL DISTRIBUTION WIDTH 13.5 % (11.5-14.0); SEGMENTED NEUTROPHILS % (AUTO) 64.4 % (42-78); TOTAL CELLS COUNTED % (AUTO) 100 %; WHITE BLOOD COUNT 7.2 10^3/uL (4.0-10.5)
[2019-01-23 07:54] LABS: ANION GAP 7 (5-19); BLOOD UREA NITROGEN 14 mg/dL (7-20); CALCIUM 8.5 mg/dL (8.4-10.2); CARBON DIOXIDE 30 mmol/L (22-30); CHLORIDE 104 mmol/L (98-107); GLUCOSE 123 mg/dL (75-110); POTASSIUM 4.4 mmol/L (3.6-5.0); SODIUM 140.9 mmol/L (137-145)
[2019-01-23] MEDS: FAMOTIDINE 20 MG TABLET PO SCH ×2 (08:59→21:29)
[2019-01-23] MEDS: DOCUSATE SODIUM 100 MG CAPSULE PO SCH ×2 (08:59→17:17)
[2019-01-23] MEDS ORDERED: MORPHINE SULFATE 10 MG/ML INJ IV PRN (15:39)
[2019-01-23] MEDS: HYDROCODONE/ACETAMINOPHEN 10-325 MG TABLET PO PRN (16:26)
--- NOTE | 2019-01-23 16:55 | PDOC PROGRESS REPORT ---
Subjective Reason For Visit: METASTATIC MALIGNANT MELANOMA Physical Exam Vital Signs: Temp Pulse Resp BP Pulse Ox 98.2 F 73 18 140/79 H 95 01/23/19 12:07 01/23/19 12:07 01/23/19 12:07 01/23/19 12:07 01/23/19 12:07 Intake & Output 01/22/19 01/23/19 01/24/19 06:59 06:59 06:59 Intake Total 0 5643 Output Total 3575 Balance 0 2068 Weight 116 kg 118 kg Results Laboratory Results: 01/23/19 06:30 01/23/19 06:30 01/23/19 01/23/19 06:30 06:30 WBC 7.2 RBC 4.79 Hgb 14.4 Hct 41.8 MCV 87 MCH 30.0 MCHC 34.4 RDW 13.5 Plt Count 159 Seg Neutrophils % 64.4 Lymphocytes % 21.8 Monocytes % 12.8 Eosinophils % 0.8 Basophils % 0.2 Absolute Neutrophils 4.6 Absolute Lymphocytes 1.6 Absolute Monocytes 0.9 Absolute Eosinophils 0.1 Absolute Basophils 0.0 Sodium 140.9 Potassium 4.4 Chloride 104 Carbon Dioxide 30 Anion Gap 7 BUN 14 Creatinine 0.98 Est GFR ( Amer) > 60 Est GFR (Non-Af Amer) > 60 Glucose 123 H Calcium 8.5 Impressions: Guidance Fluoroscopy 01/22/19 00:00 IMPRESSION: IMAGE(S) OBTAINED DURING PROCEDURE. Assessment & Plan - Diagnosis (1) Metastatic melanoma Is this a current diagnosis for this admission?: Yes - Plan Summary Plan Summary: This is a 38-year-old male with melanoma metastatic to the inguinal lymph nodes. The patient underwent repeat excision of his primary melanoma site with superficial and deep inguinal lymphadenectomy. Patient is doing well today. His pain is controlled. I will transition him to oral pain medications and as needed medications. D/C NURSES EDUCATOR. I have encouraged him to ambulate several times a day, however he should elevate his left lower extremity when not actively walking. Patient should wear his NIESHA hose at all times. The drains are pr oductive of serosanguineous fluid. His dressings are dry and intact.
[2019-01-23] MEDS: ONDANSETRON HCL INJ/PF 4 MG/2 ML SDV IV PRN (21:29)
[2019-01-24] MEDS: ONDANSETRON HCL INJ/PF 4 MG/2 ML SDV IV PRN (03:49)
[2019-01-24] MEDS: KETOROLAC TROMETHAMINE INJ/PF 30 MG/1 ML SDV IV SCH ×3 (05:45→22:07)
[2019-01-24] MEDS: FAMOTIDINE 20 MG TABLET PO SCH ×2 (09:59→22:08)
[2019-01-24] MEDS: DOCUSATE SODIUM 100 MG CAPSULE PO SCH ×2 (09:59→17:34)
[2019-01-24] MEDS: HYDROCODONE/ACETAMINOPHEN 10-325 MG TABLET PO PRN ×3 (10:03→23:37)
--- NOTE | 2019-01-24 11:23 | PDOC PROGRESS REPORT ---
Subjective Progress Note for:: 01/24/19 Reason For Visit: METASTATIC MALIGNANT MELANOMA Physical Exam Vital Signs: Temp Pulse Resp BP Pulse Ox 98.7 F 62 19 118/56 L 94 01/24/19 07:34 01/24/19 07:34 01/24/19 07:34 01/24/19 07:34 01/24/19 07:34 Intake & Output 01/23/19 01/24/19 01/25/19 06:59 06:59 06:59 Intake Total 5643 2418.01 Output Total 3575 3210 Balance 2068 -791.99 Weight 118 kg Results Laboratory Results: 01/23/19 06:30 01/23/19 06:30 Impressions: Guidance Fluoroscopy 01/22/19 00:00 IMPRESSION: IMAGE(S) OBTAINED DURING PROCEDURE. Assessment & Plan - Diagnosis (1) Metastatic melanoma Is this a current diagnosis for this admission?: Yes - Plan Summary Plan Summary: This is a 38-year-old male with melanoma metastatic to the inguinal lymph nodes. The patient underwent repeat excision of his primary melanoma site with superficial and deep inguinal lymphadenectomy. He is postoperative day #2. Patient is doing well today. His pain is controlled. The drains are productive of serosanguineous fluid. His incisions are clean, dry, intact. There is minimal lower extremity swelling. Out of bed/ambulate several times a day, however he should elevate his left lower extremity when not actively walking. Patient should wear his NIESHA hose at all times. Aggressive pulmonary toilet. D/C [place]. Leave LEXIE drains in place. Continue current pain medication regimen. OK to shower.
--- NOTE | 2019-01-24 20:03 | Operative Report ---
Nonrecallable Operative Report DATE OF SURGERY: 01/22/19 PREOPERATIVE DIAGNOSIS: metastatic melanoma POSTOPERATIVE DIAGNOSIS: same OPERATION: 1. Ultrasound-guided central venous puncture. 2. Left internal jugular vein Mediport placement. 3. Wide local excision of left lateral thigh melanoma site for close margins. SURGEON: ALLIE MULLIGAN CAPTAIN ROOM SERVICE: DAYAMI CERVANTES ANESTHESIA: GA TISSUE REMOVED OR ALTERED: Wide local excision of melanoma site of the left lateral thigh (2.5 cm x 6 cm). COMPLICATIONS: None apparent ESTIMATED BLOOD LOSS: Minimal PROCEDURE: Drains/implants: Left IJ Mediport. Procedure in detail after informed consent was obtained, the patient was brought into the operating room and laid in the Trendelenburg position. The area of the left neck and chest were prepped and draped in a normal sterile fashion. An ultrasound was used to identify the left internal jugular vein. It was compressible with normal flow. The left IJ was then accessed under direct ultrasonic guidance using the supplied vascular access needle. Dark venous, nonpulsatile blood was returned in the syringe. The wire was inserted into the vein easily. The wire was confirmed to be within the lumen of the vein using ultrasound as well as fluoroscopy. Next a separate incision was created in the left chest to accommodate the Mediport hub. The catheter was then tunneled from the hub insertion site to the needle insertion site. The dilator and breakaway sheath were then inserted over the wire under direct fluoroscopic guidance. The dilator and wire were then removed as one continuous piece. The catheter was inserted into the breakaway sheath. The sheath was cracked and pulled away, leaving the catheter within the SVC. The catheter was pulled back to an appropriate level. The catheter was trimmed to length, and the Mediport hub was attached. The hub was buried in the pocket. The hub was sutured to the chest wall using 3-0 Vicryl suture in simple interrupted fashion. The hub was then accessed, aspirated, and flushed with heparinized saline. The overlying soft tissue was closed using 3-0 Vicryl suture in simple running fashion. The overlying skin was closed using 4-0 Vicryl Rapide suture in subcuticular fashion. A dressing was placed and this portion of the procedure was concluded. Attention was then turned to the wide local excision of the melanoma site of the left lateral thigh. The left lateral thigh was prepped and draped in a normal sterile fashion. The midportion of the incision was marked. 1.5 cm of margin was taken inferiorly and 1 cm was taken superiorly. 6 cm length was obtained in order to facilitate closure. The subcutaneous tissue was closed using 2-0 Vicryl suture in simple interrupted fashion. The overlying skin was closed using skin torito. Once this was completed the dressing was placed, and Dr. Mahajan performed his portion of the procedure. Please see his dictation for details regarding this. Condition: Stable. Dayami Cervantes PA-C was scrubbed and present the entirety of the procedure. She assisted with all portions of the procedure including removal of the skin, closure of the subcutaneous tissue, closure of the skin, placement of the Mediport.
[2019-01-25] MEDS: HYDROCODONE/ACETAMINOPHEN 10-325 MG TABLET PO PRN ×3 (03:41→18:56)
[2019-01-25] MEDS: KETOROLAC TROMETHAMINE INJ/PF 30 MG/1 ML SDV IV SCH ×3 (05:56→21:59)
[2019-01-25] MEDS: DOCUSATE SODIUM 100 MG CAPSULE PO SCH (09:22)
[2019-01-25] MEDS: FAMOTIDINE 20 MG TABLET PO SCH ×2 (09:22→21:59)
--- NOTE | 2019-01-25 14:06 | PDOC PROGRESS REPORT ---
Subjective Progress Note for:: 01/25/19 Reason For Visit: METASTATIC MALIGNANT MELANOMA Physical Exam Vital Signs: Temp Pulse Resp BP Pulse Ox 98.6 F 80 16 143/87 H 98 01/25/19 11:00 01/25/19 11:00 01/25/19 11:00 01/25/19 11:00 01/25/19 11:00 Intake & Output 01/24/19 01/25/19 01/26/19 06:59 06:59 06:59 Intake Total 2418.01 Output Total 3210 260 Balance -791.99 -260 Weight 113.4 kg Results Laboratory Results: 01/23/19 06:30 01/23/19 06:30 Impressions: Guidance Fluoroscopy 01/22/19 00:00 IMPRESSION: IMAGE(S) OBTAINED DURING PROCEDURE. Assessment & Plan - Diagnosis (1) Metastatic melanoma Is this a current diagnosis for this admission?: Yes - Plan Summary Plan Summary: This is a 38-year-old male with melanoma metastatic to the inguinal lymph nodes. The patient underwent repeat excision of his primary melanoma site with superficial and deep inguinal lymphadenectomy. Patient is doing well today. His pain is controlled. The drains are productive of serosanguineous fluid. His incisions are clean, dry, intact. There is minimal lower extremity swelling. Out of bed/ambulate several times a day, however he should elevate his left lower extremity when not actively walking. Patient should wear his NIESHA hose at all times. Aggressive pulmonary toilet. Leave LEXIE drains in place. Continue current pain medication regimen. OK to shower.
[2019-01-25] MEDS: ONDANSETRON HCL INJ/PF 4 MG/2 ML SDV IV PRN ×2 (14:28→20:25)
[2019-01-26] MEDS: ONDANSETRON HCL INJ/PF 4 MG/2 ML SDV IV PRN ×2 (00:29→05:34)
[2019-01-26] MEDS: KETOROLAC TROMETHAMINE INJ/PF 30 MG/1 ML SDV IV SCH (05:22)
--- NOTE | 2019-01-26 07:29 | PDOC DISCHARGE SUMMARY ---
General - Admit/Disc Date/PCP Admission Date/Primary Care Provider: 01/22/19 12:02 Discharge Date: 01/26/19 - Discharge Diagnosis (1) Metastatic melanoma Is this a current diagnosis for this admission?: Yes - Additional Information Resuscitation Status: Full Code Discharge Diet: As Tolerated Discharge Activity: Balance Activity w/Rest Home Medications: No Home Medications 12/08/18 History of Present Illness History of Present Illness: DORENE ALEJANDRO is a 38 year old male found to have metastatic malignant melanoma. The patient was brought to the operating room for reexcision of his melanoma site, Mediport placement, and superficial/deep inguinal lymphadenectomy. The patient underwent the surgery and was transferred to the floor in stable condition. Hospital Course Hospital Course: Patient arrived on the floor in stable condition. He very shortly began ambulating. His pain was difficult to control at first, however improved significantly over time. By 01/26/2019 the patient was ambulating, tolerating a diet, and his pain was controlled with oral pain medications. At this time it was felt that he had reached maximal hospital benefit, and was fit for discharge. Physical Exam Vital Signs: Temp Pulse Resp BP Pulse Ox 98.9 F 78 17 127/63 H 94 01/26/19 04:00 01/26/19 04:00 01/26/19 04:00 01/26/19 04:00 01/26/19 04:00 Intake & Output 01/25/19 01/26/19 01/27/19 06:59 06:59 06:59 Intake Total 588 Output Total 260 260 Balance -260 328 Weight 113.4 kg 113.4 kg Results Laboratory Results: 01/23/19 06:30 01/23/19 06:30 Impressions: Guidance Fluoroscopy 01/22/19 00:00 IMPRESSION: IMAGE(S) OBTAINED DURING PROCEDURE. Qualifiers - * PATIENT BEING DISCHARGED WITH ANY OF THE FOLLOWING DIAGNOSIS: No Plan Discharge Plan: Discharge home. Diet as tolerated. Activity: Nonstrenuous. [place] 10/325 mg p.o. every 6 hours as needed for pain. Follow-up with me in 7-10 days. Okay to shower. No tub baths or swimming pools until cleared by me. Time Spent: Less than 30 Minutes
[2019-01-26] MEDS ORDERED: ONDANSETRON 4 MG TAB.RAPDIS ONE (09:34)
[2019-01-26] MEDS: HYDROCODONE/ACETAMINOPHEN 10-325 MG TABLET PO PRN (09:37)
[2019-01-26] MEDS: FAMOTIDINE 20 MG TABLET PO SCH (09:38)
[2019-01-26 09:54] VITALS: BP 123/56
--- NOTE | 2019-01-27 13:46 | OPERATIVE REPORT E ---
Operative Report NAME: DORENE ALEJANDRO : 1980 AGE: 38Y DATE OF SURGERY: 01/22/2019 ROOM: 207 ADDENDUM: The stated curvilinear incision that was made in the left groin crease and ellipsed around the previous site to encompass that biopsy site was approximately 12 cm in length. DICTATING PHYSICIAN: RANULFO MATT M.D. [id number] PHY#: [id number] ID: [id number] JOB#: [id number] ACCT: [id number] cc:RANULFO MATT M.D. >
== END 2019-01-26 09:59 | disposition home or self-care (01) | DRG 580 ==
LOC: OROUT 05:30 → 4W 12:02 → OROUT 14:16 → 2N 01-25 22:47
PROVIDERS: ADMIT Surgery; ATTEND Surgery
PROC: B518ZZA Fluoroscopy of Superior Vena Cava, Guidance (ICD-10-PCS; 2019-01-22)
PROC: B548ZZA Ultrasonography of Superior Vena Cava, Guidance (ICD-10-PCS; 2019-01-22)
PROC: 07BJ0ZX Excision of Left Inguinal Lymphatic, Open Approach, Diagnostic (ICD-10-PCS; principal; 2019-01-22 07:30)
PROC: 07BG0ZX Excision of Left Lower Extremity Lymphatic, Open Approach, Diagnostic (ICD-10-PCS; 2019-01-22 07:30)
PROC: 02HV33Z Insertion of Infusion Device into Superior Vena Cava, Percutaneous Approach (ICD-10-PCS; 2019-01-22 07:30)
DX: C43.9 Malignant melanoma of skin, unspecified (principal); C77.4 Secondary and unspecified malignant neoplasm of inguinal and lower limb lymph nodes
CPT/HCPCS: 1930; 36415; 77001; 80048; 85025; 88307; C1788; C9250; J0131; J0330; J0690; J1100; J1170; J1642; J1741; J1885; J2250; J2270; J2405; J2550; J2704; J3010; J3490; J7050; Q9967; S0119

== ENCOUNTER 2019-03-13 10:17 | Outpatient (CLI) | payer BC ==
[~2019-03-13 10:17] MED LIST changes: -CEFAZOLIN 2 GM/D5W RTU 2 GM/50 ML RTUPB IV ONE; -CEFAZOLIN 2 GM/D5W RTU 2 GM/50 ML RTUPB IV PRN; -IBUPROFEN 800 MG in NORMAL SALINE 250 ML IV PRN; -LACTATED RINGERS 1000 ML IV PRN; -LIDOCAINE 0.5% INJ-PF (5 MG/ML) 50 ML SDV SUBCUT PRN; +NORMAL SALINE 250 ML IV PRN; +PEMBROLIZUMAB 200 MG in NORMAL SALINE 50 ML IV PRN
[2019-03-13 10:53] VITALS: BP 123/50
[2019-03-13] MEDS ORDERED: NORFLURANE/PENTAFLUOROPROPANE 30 ML SPRAY TP PRN (11:02)
== END 2019-03-13 12:00 | disposition home or self-care (01) ==
LOC: II 10:17 → 5TH 10:33 → II 12:00
PROVIDERS: ATTEND Internal Medicine
PROC: 3E0430M Introduction of Antineoplastic, Monoclonal Antibody, into Central Vein, Percutaneous Approach (ICD-10-PCS; principal; 2019-03-13)
DX: Z51.11 Encounter for antineoplastic chemotherapy (principal); C43.72 Malignant melanoma of left lower limb, including hip
CPT/HCPCS: 96413; 96374; 96360; J9271; J3490

== ENCOUNTER 2019-04-03 10:08 | Outpatient (CLI) | payer BC, MEDICAID ==
[2019-04-03 10:38] VITALS: BP 153/57
== END 2019-04-03 12:17 | disposition home or self-care (01) ==
LOC: II 10:08 → 5TH 10:08 → II 12:17
PROVIDERS: ATTEND Internal Medicine
DX: C43.72 Malignant melanoma of left lower limb, including hip (principal); Z51.11 Encounter for antineoplastic chemotherapy
CPT/HCPCS: 96413; 96374; 96360; J9271; J1642

== ENCOUNTER 2019-04-24 10:36 | Outpatient (CLI) | payer BC ==
[2019-04-24 11:34] VITALS: BP 142/68
== END 2019-04-24 12:14 | disposition home or self-care (01) ==
LOC: II 10:36 → 5TH 10:39 → II 12:14
PROVIDERS: ATTEND Internal Medicine
PROC: 3E0430M Introduction of Antineoplastic, Monoclonal Antibody, into Central Vein, Percutaneous Approach (ICD-10-PCS; principal; 2019-04-24)
DX: Z51.11 Encounter for antineoplastic chemotherapy (principal); C43.72 Malignant melanoma of left lower limb, including hip
CPT/HCPCS: 96413; 96374; J1642; J9271

== ENCOUNTER 2019-06-05 11:00 | Outpatient (CLI) | payer BC ==
[2019-06-05] MEDS ORDERED: PEMBROLIZUMAB 200 MG in NORMAL SALINE 50 ML IV PRN (11:13)
[2019-06-05] MEDS ORDERED: NORMAL SALINE 250 ML IV PRN (11:14)
[2019-06-05 11:28] VITALS: BP 141/58
== END 2019-06-05 13:00 | disposition home or self-care (01) ==
LOC: II 11:00 → 5TH 11:03 → II 13:00
PROVIDERS: ATTEND Internal Medicine
PROC: 3E0430M Introduction of Antineoplastic, Monoclonal Antibody, into Central Vein, Percutaneous Approach (ICD-10-PCS; principal; 2019-06-05)
DX: Z51.11 Encounter for antineoplastic chemotherapy (principal); C43.72 Malignant melanoma of left lower limb, including hip
CPT/HCPCS: 96413; J1642; J9271

== ENCOUNTER 2019-06-26 10:03 | Outpatient (CLI) | payer BC ==
[2019-06-26 10:30] VITALS: BP 134/75
== END 2019-06-26 11:20 | disposition home or self-care (01) ==
LOC: II 10:03 → 5TH 10:05 → II 11:20
PROVIDERS: ATTEND Internal Medicine
PROC: 3E0430M Introduction of Antineoplastic, Monoclonal Antibody, into Central Vein, Percutaneous Approach (ICD-10-PCS; principal; 2019-06-26)
DX: Z51.11 Encounter for antineoplastic chemotherapy (principal); C43.72 Malignant melanoma of left lower limb, including hip
CPT/HCPCS: 96413; J1642; J9271

== ENCOUNTER 2019-07-17 10:34 | Outpatient (CLI) | payer BC ==
[2019-07-17 10:53] VITALS: BP 131/61
== END 2019-07-17 11:59 | disposition home or self-care (01) ==
LOC: II 10:34 → 5TH 10:38 → II 11:59
PROVIDERS: ATTEND Internal Medicine
PROC: 3E0430M Introduction of Antineoplastic, Monoclonal Antibody, into Central Vein, Percutaneous Approach (ICD-10-PCS; principal; 2019-07-17)
DX: Z51.11 Encounter for antineoplastic chemotherapy (principal); C43.72 Malignant melanoma of left lower limb, including hip
CPT/HCPCS: 96413; J1642; J9271

== ENCOUNTER 2019-08-14 10:21 | Outpatient (CLI) | payer BC ==
[2019-08-14 10:56] VITALS: BP 133/59
== END 2019-08-14 12:04 | disposition home or self-care (01) ==
LOC: II 10:21 → 5TH 11:19 → II 12:04
PROVIDERS: ATTEND Internal Medicine
PROC: 3E0430M Introduction of Antineoplastic, Monoclonal Antibody, into Central Vein, Percutaneous Approach (ICD-10-PCS; principal; 2019-08-14)
DX: Z51.11 Encounter for antineoplastic chemotherapy (principal); C43.72 Malignant melanoma of left lower limb, including hip
CPT/HCPCS: 96413; J1642; J9271

== ENCOUNTER → 2019-08-30 | Outpatient (CLI) | payer BC ==
--- NOTE | 2019-08-31 09:40 | RADIOLOGY REPORT (SQ) ---
EXAM DESCRIPTION: PET CT WHOLE BODY COMPLETED DATE/TIME: 08/30/2019 11:43 pm REASON FOR STUDY: (C43.72)MALIGNANT MELANOMA OF LEFT LOWER LIMB, INCLUDING HIP C43.72 MALIGNANT SUZANNA ANOMA OF LEFT LOWER LIMB, INCLUDING HIP COMPARISON: Whole-body PET-CT 01/04/2019 CT abdomen pelvis 11/17/2018 RADIONUCLIDE AND DOSE: 9.6 mCi F18 FDG The route of agent administration: Intravenous FASTING BLOOD SUGAR: 89 mg/dl CONTRAST TYPE AND DOSE: No CT contrast given. TECHNIQUE: Blood glucose level was verified. Above dose of FDG was injected intravenously. 2-D seg mented attenuation correction images were obtained through the entire body. Noncontrast CT images we re obtained for attenuation correction and fusion with emission images. CT images were performed wit hout oral or intravenous contrast and are not sensitive for parenchymal lesions. A series of overlap ping emission PET images were obtained. Images reviewed and manipulated at independent work station by the radiologist. Images stored on PACS. LIMITATIONS: None. FINDINGS: HEAD AND NECK: No areas of abnormal metabolic activity in the soft tissues of the head and neck. CHEST: No areas of abnormal metabolic activity in the chest. ABDOMEN AND PELVIS: No areas of abnormal metabolic activity in the abdomen or pelvis. Expected physi ologic activity is present in the genitourinary system and bowel. LOWER EXTREMITIES: No areas of abnormal metabolic activity in the soft tissues of the lower extremiti es. BONES: No abnormal metabolic activity in the visualized skeleton. ADDITIONAL CT FINDINGS: Left-sided permanent central line tip in the superior vena cava. Surgical cl ips in the left external iliac node chain and inguinal region post lymph node dissection. OTHER: No other significant findings. IMPRESSION: No PET-CT evidence of residual or recurrent melanoma. Whole-body scan. TECHNICAL DOCUMENTATION: JOB ID: [id number] [employer]- All Rights Reserved Reading location - IP/workstation name: [email or web address]
== END ==
LOC: RAD 14:45
PROVIDERS: ATTEND Physician Assistant Medical
DX: C43.72 Malignant melanoma of left lower limb, including hip (principal)
CPT/HCPCS: 78816; A9552

== ENCOUNTER 2019-09-04 09:51 | Outpatient (CLI) | payer BC ==
[2019-09-04 10:12] VITALS: BP 131/65
== END 2019-09-04 11:26 | disposition home or self-care (01) ==
LOC: II 09:51 → 5TH 09:55 → II 11:26
PROVIDERS: ATTEND Internal Medicine
PROC: 3E0430M Introduction of Antineoplastic, Monoclonal Antibody, into Central Vein, Percutaneous Approach (ICD-10-PCS; principal; 2019-09-04)
DX: Z51.11 Encounter for antineoplastic chemotherapy (principal); C43.72 Malignant melanoma of left lower limb, including hip
CPT/HCPCS: 96413; J1642; J9271

== ENCOUNTER 2019-09-25 10:08 | Outpatient (CLI) | payer BC ==
[2019-09-25 11:13] VITALS: BP 145/65
== END 2019-09-25 12:19 | disposition home or self-care (01) ==
LOC: II 10:08 → 5TH 10:10 → II 12:19
PROVIDERS: ATTEND Internal Medicine
PROC: 3E0430M Introduction of Antineoplastic, Monoclonal Antibody, into Central Vein, Percutaneous Approach (ICD-10-PCS; principal; 2019-09-25)
DX: Z51.11 Encounter for antineoplastic chemotherapy (principal); C43.72 Malignant melanoma of left lower limb, including hip
CPT/HCPCS: 96413; J9271; J1642

== ENCOUNTER 2019-10-16 10:21 | Outpatient (CLI) | payer BC ==
[~2019-10-16 10:21] MED LIST changes: -NORMAL SALINE 250 ML IV PRN
[2019-10-16 10:30] VITALS: BP 135/51
[2019-10-16] MEDS: NORMAL SALINE 250 ML IV PRN ×2 (10:30→10:35)
== END 2019-10-16 12:15 | disposition home or self-care (01) ==
LOC: II 10:21 → 5TH 10:23 → II 12:15
PROVIDERS: ATTEND Internal Medicine
PROC: 3E0430M Introduction of Antineoplastic, Monoclonal Antibody, into Central Vein, Percutaneous Approach (ICD-10-PCS; principal; 2019-10-16)
DX: Z51.11 Encounter for antineoplastic chemotherapy (principal); C43.72 Malignant melanoma of left lower limb, including hip
CPT/HCPCS: 96413; J9271; J1642

== ENCOUNTER 2019-11-06 10:05 | Outpatient (CLI) | payer BC ==
[~2019-11-06 10:05] MED LIST changes: +NORMAL SALINE 250 ML IV PRN
[2019-11-06 10:30] VITALS: BP 119/59
== END 2019-11-06 12:30 | disposition home or self-care (01) ==
LOC: II 10:05 → 5TH 10:14 → II 12:30
PROVIDERS: ATTEND Internal Medicine
DX: Z51.11 Encounter for antineoplastic chemotherapy (principal); C43.72 Malignant melanoma of left lower limb, including hip
CPT/HCPCS: 96413; J9271; J1642

== ENCOUNTER 2019-11-27 10:00 | Outpatient (CLI) | payer BC ==
[2019-11-27 10:40] VITALS: BP 140/79
== END 2019-11-27 11:02 | disposition home or self-care (01) ==
LOC: II 10:00 → 5TH 10:02 → II 11:02
PROVIDERS: ATTEND Internal Medicine
DX: Z51.11 Encounter for antineoplastic chemotherapy (principal); C43.72 Malignant melanoma of left lower limb, including hip
CPT/HCPCS: 96413; J9271; J1642

== ENCOUNTER 2019-12-18 10:11 | Outpatient (CLI) | payer BC ==
[2019-12-18 12:06] VITALS: BP 141/64
== END 2019-12-18 12:00 | disposition home or self-care (01) ==
LOC: II 10:11 → 5TH 10:12 → II 12:00
PROVIDERS: ATTEND Internal Medicine
DX: Z51.11 Encounter for antineoplastic chemotherapy (principal); C43.72 Malignant melanoma of left lower limb, including hip
CPT/HCPCS: 96413; J9271; J1642

== ENCOUNTER → 2020-09-20 | Outpatient (CLI) | payer OTHER ==
--- NOTE | 2020-09-21 12:38 | RADIOLOGY REPORT (SQ) ---
EXAM DESCRIPTION: CT CHEST WITH IMAGES COMPLETED DATE/TIME: 09/20/2020 1:55 pm REASON FOR STUDY: (C43.72)MALIGNANT MELANOMA OF LEFT LOWER LIMB, INCLUDING HIP C43.72 MALIGNANT SUZANNA ANOMA OF LEFT LOWER LIMB, INCLUDING HIP COMPARISON: PET from 03/08/2020. TECHNIQUE: CT scan of the chest performed using helical scanning technique with dynamic intravenous contrast injection. Images reviewed with lung, soft tissue and bone windows. Reconstructed coronal and sagittal MPR and MIP images reviewed. All images stored on PACS. All CT scanners at this facility use dose modulation, iterative reconstruction, and/or weight based d osing when appropriate to reduce radiation dose to as low as reasonably achievable (ALARA). [facility]: Dose Right [facility]: CareDose [facility]: Dose Right [facility]: Teradose 4D [facility]: IDx CONTRAST TYPE AND DOSE: 100 mL Omnipaque 350- low osmolar. RENAL FUNCTION: None required. The patient is less than 50 years old. RADIATION DOSE: CT Rad equipment meets quality standard of care and radiation dose reduction techniq ues were employed. CTDIvol: 11.6 - 16.4 mGy. DLP: 2023 mGy-cm. LIMITATIONS: None. FINDINGS: LUNGS AND PLEURA: Evaluation is limited due to the respiratory motion artifact. The trach ea and main bronchi are patent. There is no consolidation, ground-glass opacification, pleural effus ion or pneumothorax. There is no pulmonary nodule or mass. HILAR AND MEDIASTINAL STRUCTURES: No adenopathy or mass. HEART AND VASCULAR STRUCTURES: No aneurysm or dissection of the thoracic aorta. No cardiomegaly or p ericardial effusion. HARDWARE: The tip of the left IJ approach port terminates within the SVC. UPPER ABDOMEN: Refer to the separate report of the CT of the abdomen. THYROID AND OTHER SOFT TISSUES: No mass or adenopathy. BONES: The lucent lesion within the T12 vertebral body is unchanged. There is no acute fracture. OTHER: No other findings. IMPRESSION: No acute cardiopulmonary process or evidence of metastatic disease. TECHNICAL DOCUMENTATION: JOB ID: [id number] Quality ID # [id number]: Final reports with documentation of one or more dose reduction techniques (e.g., Au tomated exposure control, adjustment of the mA and/or kV according to patient size, use of iterative reconstruction technique) 2010 [employer]- All Rights Reserved Reading location - IP/workstation name: [email or web address]
--- NOTE | 2020-09-21 12:43 | RADIOLOGY REPORT (SQ) ---
EXAM DESCRIPTION: CT ABD/PELVIS WITH IV ONLY IMAGES COMPLETED DATE/TIME: 09/20/2020 1:56 pm REASON FOR STUDY: (C43.72)MALIGNANT MELANOMA OF LEFT LOWER LIMB, INCLUDING HIP C43.72 MALIGNANT SUZANNA ANOMA OF LEFT LOWER LIMB, INCLUDING HIP COMPARISON: PET from 03/08/2020. TECHNIQUE: CT scan of the abdomen and pelvis performed using helical scanning technique with dynamic intravenous contrast injection. No oral contrast. Images reviewed with lung, soft tissue, and bone windows. Reconstructed coronal and sagittal MPR images reviewed. Delayed images for evaluation of the urinary system also acquired. All images stored on PACS. All CT scanners at this facility use dose modulation, iterative reconstruction, and/or weight based d osing when appropriate to reduce radiation dose to as low as reasonably achievable (ALARA). [facility]: Dose Right [facility]: CareDose [facility]: Dose Right [facility]: Teradose 4D [facility]: [employer] CONTRAST TYPE AND DOSE: Contrast/concentration: Isovue 350.00 mmol/ml; Total Contrast Delivered: 100 .0 ml; Total Saline Delivered: 65.0 ml RENAL FUNCTION: None required. The patient is less than 50 years old. LIMITATIONS: None. FINDINGS: LOWER CHEST: Refer to the separate report of the CT of the chest. LIVER: The morphology of the liver is noncirrhotic. The portal veins are patent. There is no hepati c mass. SPLEEN: No splenomegaly or splenic mass. PANCREAS: No acute gross abnormality of the pancreas. GALLBLADDER: No abnormality that is apparent on CT. ADRENAL GLANDS: No mass or asymmetry. RIGHT KIDNEY AND URETER: No solid mass, hydronephrosis, nephrolithiasis, hydroureter or ureterolithia sis. LEFT KIDNEY AND URETER: No solid mass, hydronephrosis, nephrolithiasis, hydroureter ureterolithiasis. AORTA AND VESSELS: No aneurysm or dissection of the abdominal aorta. The abdominopelvic vasculature is patent. RETROPERITONEUM: There surgical clips are around the left common iliac, external iliac and femoral ar teries. There is no retroperitoneal adenopathy, hemorrhage or mass. BOWEL AND PERITONEAL CAVITY: No bowel obstruction, bowel wall thickening or pericolonic/ perienteric inflammation. No mesenteric adenopathy, free intraperitoneal fluid or mesenteric/ omental inflammati on. APPENDIX: Normal. PELVIS: No abnormality. ABDOMINAL WALL: Miniscule fat containing umbilical hernia. The mild subcutaneous fat stranding in th e left groin and proximal left thigh is unchanged. BONES: No acute findings. OTHER: No other findings. IMPRESSION: No acute intra-abdominal abnormality or evidence of metastatic disease. TECHNICAL DOCUMENTATION: JOB ID: [id number] Quality ID # [id number]: Final reports with documentation of one or more dose reduction techniques (e.g., Au tomated exposure control, adjustment of the mA and/or kV according to patient size, use of iterative reconstruction technique) 2010 [employer]- All Rights Reserved Reading location - IP/workstation name: [email or web address]
== END ==
LOC: RAD 13:34
PROVIDERS: ATTEND Internal Medicine
DX: C43.72 Malignant melanoma of left lower limb, including hip (principal)
CPT/HCPCS: 71260; 74177